=== PATIENT | female | born 1930 | race Caucasian/White ===

== ENCOUNTER 2020-07-07 12:29 | Emergency (ER) | payer OTHER ==
[~2020-07-07] VITALS: Ht 152.4 cm; Wt 52.2 kg
[2020-07-07 12:31] VITALS: BP 111/54
--- NOTE | 2020-07-07 12:35 | NUR ---
PT SAAD FROM 'S OFFICE IN [place] FOR UNRESPONSIVENESS TO QUESTIONS IN THE OFFICE. PT PRESENTED TO THE OFFICE FOR FOLLOWING UP OF SEIZURE AND UTI ON 07/05/2020. PT WAS NOT WITNESSED OF HAVING SEIZURE EPISODE, FALL, OR HEAD TRAUMA IN THE OFFICE. PT IS A&OX0 UPON PRESENTATION, PER EMS, THAT IS HER BASELINE. PMH: SEIZURE, DEMENTIA, ANEMIA, HTN, OSTEOPOROSIS, UTI MEDS: SEE LIST
[2020-07-07] MEDS ORDERED: cefTRIAXone 1,000 MG in DEXT 5% MINI-BAG PLUS 50 ML IV ONE (12:45)
--- NOTE | 2020-07-07 13:00 | NUR ---
STRAIGHT CATH DONE, BUT UNABLE TO OBTAIN URINE AT THIS TIME
[2020-07-07 13:41] LABS: BASOPHILS % (AUTO) 0.3 % (0.0-2.0); EOSINOPHILS # (AUTO) 0.3 K/uL (0-0.4); EOSINOPHILS % (AUTO) 2.8 % (0.0-4.0); HEMOGLOBIN 11.2 g/dL (12.0-16.0); LYMPHOCYTES # (AUTO) 1.6 K/uL (2.5-16.5); LYMPHOCYTES % (AUTO) 17.4 % (20.5-51.1); MEAN CORPUSCULAR HEMOGLOBIN 26 pg (27-31); MEAN CORPUSCULAR HGB CONC 32 g/dL (33-37); MONOCYTES # (AUTO) 0.7 K/uL (0.8-1.0); MONOCYTES % (AUTO) 7.9 % (1.7-9.3); NEUTROPHILS # (AUTO) 6.4 K/uL (1.8-7.7); NEUTROPHILS % (AUTO) 71.6 % (42.2-75.2); PLATELET COUNT (AUTO) 224 K/uL (140-450); RED BLOOD CELL COUNT(AUTO) 4.26 MIL/uL (4.20-5.40); RED CELL DISTRIBUTION WIDTH 16.5 % (11.6-13.7); WHITE BLOOD COUNT (AUTO) 8.9 K/uL (4.8-10.8)
[2020-07-07] MEDS ORDERED: cefTRIAXone 1,000 MG VIAL ONE (13:52)
[2020-07-07 13:54] LABS: ANION GAP 18.2 (8-16); CARBON DIOXIDE 21.4 mmol/L (21-32); CHLORIDE 106 mmol/L (98-107); GLUCOSE 125 mg/dL (74-106); POTASSIUM 4.6 mmol/L (3.5-5.1); SODIUM SERUM 141 mmol/L (136-145); UREA NITROGEN, BLOOD 39 mg/dL (7-18)
[2020-07-07 14:00] LABS: ALBUMIN 3.6 g/dL (3.4-5.0); ASPARTATE AMINOTRANSFERASE 28 U/L (15-37); TOTAL BILIRUBIN 0.3 mg/dL (0.0-1.0)
--- NOTE | 2020-07-07 14:00 | NUR ---
PT IS RESTING IN THE BED WITH VSS SHOWED ON THE MONITOR. WILL CONTINUE MONITORING PT'S VITAL SIGNS.
[2020-07-07] MEDS ORDERED: NACL 0.9% 1,000 ML IV ONE (16:35)
--- NOTE | 2020-07-07 16:44 | NUR ---
Lactic Acid 2.1--critical value received from lab. Dr Bloom made aware
--- NOTE | 2020-07-07 18:46 | NUR ---
CALLED [facility] AND WAS TOLD THE ROOM THAT ASSIGNED TO THE PT HAS NOT BEEN READY YET AND THEY NURSES ARE CHANGING SHIFTS AT THIS MOMENT. THEY WANTED US TO CALL FOR GIVING REPORT AFTER 1930.
--- NOTE | 2020-07-07 18:56 | NUR ---
PER DR. RUFFIN, CANCEL UA AND URINE CULTURE.
--- NOTE | 2020-07-07 19:14 | NUR ---
PT STABLE AT THIS TIME. REPORT GIVEN TO ANJALI ZAYAS FOR CONTINUITY OF CARE.
--- NOTE | 2020-07-07 19:38 | NUR ---
SPOKE WITH PT'S SON, AT [phone] INFORMED HIM OF PLAN FOR PT TO BE TRANSPORTED BACK TO [facility].
--- NOTE | 2020-07-07 19:52 | NUR ---
CALLED [facility] AT [facility], AND SPOKE WITH GARRETT AND GAVE REPORT FOR PT. Addendum: 07/07/20 at 4 by [employer] [phone]
[2020-07-07 20:33] VITALS: BP 137/62
--- NOTE | 2020-07-07 20:50 | NUR ---
CALLED AND SPOKE TO KELSIE AT [facility], MARQUEZ TUCKER WAS NOT AVAILABLE. INFORMED KELSIE THE PT WAS IN ENROUTE TO HOSPITAL, LEFT [facility] AT 2032.
--- NOTE | 2020-07-07 21:02 | NUR ---
CALLED AND INFORMED DAUGHTER IN LAW AT [phone] THAT PT WAS TRANSPORTED TO [facility] AT 2032
--- NOTE | 2020-07-07 21:04 | NUR ---
Patient to be transferred to [facility]. Is being transferred due to NEED FOR HIGHER LEVEL OF CARE. Receiving facility has accepting physician and available space. ER physician has signed transfer form. Patient or responsible democrat has agreed to transfer and signed form. Patient belongings inventoried and will be sent with patient. Copy of nursing notes, lab reports, EKG, Physicians Orders and X-rays to be sent with patient. Report called to MARQUEZ TUCKER at receiving facility. [facility] ambulance service has been called for transfer. ETA is [phone].
--- NOTE | 2020-07-10 02:44 | NUR ---
LATE ENTRY---- NS BOLUS DISCONTINUED AT 1750
== END 2020-07-07 20:33 | disposition short-term general hospital (02) ==
LOC: MED 12:29
DX: R41.82 Altered mental status, unspecified (principal); F03.90 Unspecified dementia, unspecified severity, without behavioral disturbance, psychotic disturbance, mood disturbance, and anxiety; I10 Essential (primary) hypertension; N28.9 Disorder of kidney and ureter, unspecified; R56.9 Unspecified convulsions
CPT/HCPCS: 36415; 70450; 71045; 80053; 83605; 83880; 84484; 85025; 87040; 93005; 96361; 96365; 99285; J0696; J7030